=== PATIENT | female | born 1975 | race Caucasian/White ===

== ENCOUNTER 2020-06-17 16:24 | Emergency (ER) | payer OTHER ==
[~2020-06-17] VITALS: Ht 167.6 cm; Wt 80.3 kg
[2020-06-17] MEDS ORDERED: HIERRO (17:34)
== END 2020-06-18 00:51 | disposition home or self-care (01) ==
LOC: ER 16:24
DX: N93.8 Other specified abnormal uterine and vaginal bleeding (principal)

== ENCOUNTER 2020-06-27 13:39 | Outpatient (CLI) | payer OTHER ==
[~2020-06-27 13:39] MED LIST: HIERRO
== END 2020-06-27 14:19 | disposition home or self-care (01) ==
LOC: SONOGRAMA 13:39
PROVIDERS: ATTEND Specialist
DX: O03.0 Genital tract and pelvic infection following incomplete spontaneous abortion (principal); N83.292 Other ovarian cyst, left side; N83.291 Other ovarian cyst, right side

== ENCOUNTER 2020-09-27 07:42 | Outpatient (CLI) | payer OTHER | END 2020-09-27 08:12 | disposition home or self-care (01) | LOC: LAB 07:42 | PROVIDERS: ATTEND Specialist | DX: D50.9 Iron deficiency anemia, unspecified (principal); D68.9 Coagulation defect, unspecified; E83.51 Hypocalcemia; Z32.02 Encounter for pregnancy test, result negative ==

== ENCOUNTER 2020-09-27 08:41 | Outpatient (CLI) | payer OTHER | END 2020-09-27 08:52 | disposition home or self-care (01) | LOC: SONOGRAMA 08:41 → MAMO-SONO 09:45 | PROVIDERS: ATTEND Specialist | DX: O28.3 Abnormal ultrasonic finding on antenatal screening of mother (principal) ==

== ENCOUNTER 2020-10-04 06:55 | Day surgery (SDC) | payer OTHER | END 2020-10-04 15:10 | disposition home or self-care (01) | LOC: CIR.AMB 06:55 | PROVIDERS: ATTEND Specialist | DX: N84.0 Polyp of corpus uteri (principal); N84.3 Polyp of vulva; Z20.822 Contact with and (suspected) exposure to COVID-19 ==

== ENCOUNTER 2022-03-10 13:23 | Outpatient (CLI) | payer OTHER | END 2022-03-10 13:43 | disposition home or self-care (01) | LOC: MAMO-SONO 13:23 | PROVIDERS: ATTEND Specialist | DX: Z12.31 Encounter for screening mammogram for malignant neoplasm of breast (principal); N63.0 Unspecified lump in unspecified breast; N92.1 Excessive and frequent menstruation with irregular cycle; N84.0 Polyp of corpus uteri ==

== ENCOUNTER 2023-07-20 09:36 | Emergency (ER) | payer OTHER ==
[~2023-07-20] VITALS: Ht 170.2 cm; Wt 90.7 kg
[2023-07-20] MEDS ORDERED: ONDANSETRON HCL 2 MG/ML VIAL IV ONE (10:00)
[2023-07-20] MEDS ORDERED: 0.9 % SODIUM CHLORIDE 1,000 ML IV SCH (10:00)
[2023-07-20] MEDS ORDERED: KETOROLAC TROMETHAMINE 30 MG VIAL IV ONE (10:00)
[2023-07-20] MEDS ORDERED: TAMSULOSIN HCL 0.4 MG CAP PO ONE (10:00)
[2023-07-20 10:32] LABS: HEMATOCRIT 33.7 % (36.0-45.00); HEMOGLOBIN 11.2 g/dL (12.0-15.00); MEAN CELL VOLUME 79.3 fL (80.00-100.00); MEAN CORPUSCULAR HEMOGLOBIN 26.4 pg (27.00-32.0); MEAN CORPUSCULAR HGB CONC 33.3 g/dl (32.0-36.0); PLATELET COUNT 195 K/uL (150-450); RED BLOOD COUNT 4.24 M/uL (4.00-6.00); RED CELL DISTRIBUTION WIDTH 18.3 % (11.5-14.5)
[2023-07-20 11:14] LABS: ALBUMIN 3.3 gm/dL (3.4-5.0); BILIRUBIN TOTAL 0.3 mg/dL (0.3-1.2); CREATININE SERUM 0.76 mg/dL (0.55-1.02); GFR 82.3; GLOBULINA 3.7 G/DL (2.4-3.5); POTASSIUM 3.86 mEq/L (3.5-5.1)
[2023-07-20] MEDS ORDERED: CIPRO500 MG PO (11:44)
[2023-07-20] MEDS ORDERED: TAMS0.4C PO (11:44)
[2023-07-20] MEDS ORDERED: KETO10TA2 PO (11:44)
[2023-07-20 12:11] LABS: URINE APPEARANCE Clear; URINE BILIRRUBIN Negative (NEGATIVE); URINE BLOOD Large; URINE COLOR Red; URINE GLUCOSE Negative (NEGATIVE); URINE LEUKOCYTE Trace; URINE NITRATE Negative; URINE PROTEIN Trace (NEGATIVE); URINE UROBILINOGEN 0.2 E.U./dl
[2023-07-20 12:14] LABS: URINE BACTERIA 309.9 uL (0.0-1933); URINE EPITHELIAL CELLS 30.6 uL (0.0-38.8); URINE RBC 7082.9 uL (0.0-20.8); URINE WBC 18.8 uL (0.0-23.2)
== END 2023-07-20 13:25 | disposition home or self-care (01) ==
LOC: ER 09:37
PROVIDERS: General Practice
DX: R10.9 Unspecified abdominal pain (principal); N20.1 Calculus of ureter; K80.20 Calculus of gallbladder without cholecystitis without obstruction; K40.20 Bilateral inguinal hernia, without obstruction or gangrene, not specified as recurrent
CPT/HCPCS: 36415; 74176; 96365; 96366; 99284; J1885; J2405; J7030